=== PATIENT | male | born 1950 | race Caucasian/White ===

== ENCOUNTER 2017-05-12 12:55 | Emergency (ER) | payer MEDICARE, BC ==
[2017-05-12 15:48] VITALS: BP 117/67
--- NOTE | 2017-05-12 16:17 | UC ---
Respiratory Complaint HPI - HPI Summary HPI Summary: pt c/o sudden onset of cough, body aches, fever X 3 days. - History of Current Complaint Chief Complaint: UCGeneralIllness Stated Complaint: FLULIKE SYMPTOMS Time Seen by Provider: 05/12/17 16:02 Hx Obtained From: Patient Onset/Duration: Sudden Onset, Lasting Days, Still Present Timing: Constant Severity Initially: Mild Severity Currently: Mild Pain Intensity: 4 Character: Cough: Nonproductive Aggravating Factors: Recumbent Position Alleviating Factors: OTC Meds Associated Signs And Symptoms: Positive: Fever, Chills, Nasal Congestion - Risk Factors Pulmonary Embolism Risk Factors: Negative Cardiac Risk Factors: Hypertension Pseudomonas Risk Factors: Negative Tuberculosis Risk Factors: Negative - Allergies/Home Medications Allergies/Adverse Reactions: Allergies Allergy/AdvReac Type Severity Reaction Status Date / Time Penicillins Allergy Rash Verified 05/12/17 15:38 Home Medications: Home Medications Acetaminophen [Acetaminophen Extra Strength] 1,000 mg PO Q6H PRN 05/12/17 [ History Confirmed 05/12/17] Esomeprazole(NF) [Nexium(NF)] 20 mg PO BEDTIME 05/12/17 [History Confirmed 05/12] Metoprolol 1 tab PO DAILY 05/12/17 [History Confirmed 05/12/17] Pravastatin (NF) [Pravachol (NF)] 0.5 tab PO 1700 05/12/17 [History Confirmed ] PMH/Surg Hx/FS Hx/Imm Hx Previously Healthy: Yes Cardiovascular History: Hypertension GI/ History: Other - Barritts esophagus Other GI/ History: hepatitis - Surgical History Surgical History: Yes Surgery Procedure, Year, and Place: RIGHT SHOULDER - Family History Known Family History: Positive: Cardiac Disease - Social History Occupation: Retired Lives: With Family Alcohol Use: None Substance Use Type: None Smoking Status (MU): Former Smoker Have You Smoked in the Last Year: No When Did the Patient Quit Smoking/Using Tobacco: 45 YRS AGO - Immunization History Vaccination Up to Date: No Review of Systems Constitutional: Fever, Chills, Fatigue Skin: Negative Eyes: Negative ENT: Sinus Congestion Respiratory: Cough Cardiovascular: Negative Gastrointestinal: Negative Genitourinary: Negative Motor: Negative Neurovascular: Negative Musculoskeletal: Myalgia Neurological: Negative Psychological: Negative Is Patient Immunocompromised?: No All Other Systems Reviewed And Are Negative: Yes Physical Exam Triage Information Reviewed: Yes Appearance: Ill-Appearing Vital Signs: Initial Vital Signs Temp 98.1 F 05/12/17 15:42 Pulse 96 05/12/17 15:42 Resp 20 05/12/17 15:42 BP 117/67 05/12/17 15:42 Pulse Ox 98 05/12/17 15:42 Vital Signs Reviewed: Yes Eye Exam: Normal ENT: Positive: Nasal congestion Dental Exam: Normal Neck exam: Normal Respiratory Exam: Normal Cardiovascular Exam: Normal Musculoskeletal Exam: Normal Neurological Exam: Normal Psychological Exam: Normal Skin Exam: Normal UC Diagnostic Evaluation - Laboratory O2 Sat by Pulse Oximetry: 98 Diagnostic Studies Comment: rapid flu positive B Respiratory Course/Dx - Differential Dx/Diagnosis Differential Diagnosis/HQI/PQRI: Bronchitis, Influenza Provider Diagnoses: Influenza B. bronchitis Discharge - Discharge Plan Condition: Stable Disposition: HOME Prescriptions: Azithromycin TAB* [Zithromax TAB (Z-EV) 250 mg #6 tabs] 2 tab PO .TODAY, THEN 1 DAILY #1 ev Benzonatate CAP* [Tessalon 100 MG CAP*] 100 mg PO Q8H PRN #30 cap PRN Reason: Cough Oseltamivir CAP* [Tamiflu CAP*] 75 mg PO Q12H #10 cap Patient Education Materials: Influenza (ED), Acute Bronchitis (ED) Referrals: [facility] [Outside] No Primary Care Phys,NOPCP [Primary Care Provider] -
== END 2017-05-12 16:39 | disposition home or self-care (01) ==
LOC: UCCORT 12:55
DX: J10.1 Influenza due to other identified influenza virus with other respiratory manifestations (principal); J40 Bronchitis, not specified as acute or chronic
CPT/HCPCS: 87502; 99202; G0463

== ENCOUNTER 2017-05-22 11:18 | Emergency (ER) | payer MEDICARE, BC ==
[2017-05-22 12:18] VITALS: BP 131/71
--- NOTE | 2017-05-22 12:19 | UC ---
FLU HPI - HPI Summary HPI Summary: 66 y/o male presents to the urgent care for a re-check for his Influenza and bronchitis. Pt reports he here on 05/12/2017 and Dx w/ the flu. Flu like symptoms improve. However he has sinus pain, pressure w/ green nasal discharge, +PND, NEWMAN. He has been taken Motrin w/ mild relief. Pain is 4/10. Pt denies ear pain, dizziness, SOB, chest pain, abdominal pain, N/V/D - History of Current Complaint Stated Complaint: FLU RE-CHECK Time Seen by Provider: 05/22/17 12:17 Hx Obtained From: Patient Onset/Duration: Gradual Onset, Lasting Weeks - 10 days, Still Present Severity Currently: Moderate Severity Initially: Moderate Pain Intensity: 4 Pain Scale Used: 0-10 Numeric Associated Signs & Symptoms: Positive: Nasal Congestion, Headache - Risk Factors Influenza Risk Factors: Negative - Allergy/Home Medications Allergies/Adverse Reactions: Allergies Allergy/AdvReac Type Severity Reaction Status Date / Time Penicillins Allergy Rash Verified 05/12/17 15:38 PMH/Surg Hx/FS Hx/Imm Hx Previously Healthy: Yes Endocrine History: Dyslipidemia Cardiovascular History: Hypertension - Surgical History Surgical History: Yes Surgery Procedure, Year, and Place: RIGHT SHOULDER - Family History Known Family History: Positive: Cardiac Disease - Social History Occupation: Employed Full-time Lives: With Family Alcohol Use: None Substance Use Type: None Smoking Status (MU): Former Smoker Have You Smoked in the Last Year: No When Did the Patient Quit Smoking/Using Tobacco: 45 YRS AGO - Immunization History Vaccination Up to Date: No Review of Systems Constitutional: Negative Skin: Negative Eyes: Negative ENT: Nasal Discharge, Sinus Congestion, Sinus Pain/Tenderness, Other - +PND Respiratory: Negative Cardiovascular: Negative Gastrointestinal: Negative Genitourinary: Negative Motor: Negative Neurovascular: Negative Musculoskeletal: Negative Neurological: Headache Is Patient Immunocompromised?: No All Other Systems Reviewed And Are Negative: Yes Physical Exam Triage Information Reviewed: Yes - Additional Comments Vitals: reviewed General: Well developed, well-nourished male patient with NAD. Head and face: Normocephalic and atraumatic, Positive tenderness over the frontal and maxillary sinuses.. Eyes: PERRLA, EOMI x 2. Normal conjunctiva. No eye discharge. ENT: Ears and TM with normal limits. Nose: with yellowish discharge and erythematous mucosa. Pharynx with erythema, no exudate. Neck: Supple, no JVD, no carotid bruits and no lymphadenopathy. Lungs: clear, no rales, no rhonchi, no wheezes. CVS: RRR, S1 and S2 present no murmurs or gallops appreciated. Abdomen: soft nontender with positive bowel sounds. Extremities: no edema noted. Neuro: WNL. Skin: warm and dry Flu Course/Dx - Course Course Of Treatment: 66 y/o male presents to the urgent care for a re-check for his Influenza and bronchitis. Pt reports he here on 05/12/2017 and Dx w/ the flu. Flu like symptoms improve. However he has sinus pain, pressure w/ green nasal discharge, +PND, NEWMAN. He has been taken Motrin w/ mild relief. Pain is 4/10. Pt denies ear pain, dizziness, SOB, chest pain, abdominal pain, N/V/D. Hx obtained. Pt w/ sinusitis on examination. Pt with 10 days of symptoms getting worse. Pt PCN allergic . Pt Rx Z-hubert PO and flonase nasal spray. Ibuprofen PO for NEWMAN. Discharge instructions explained to Pt. Advised to Return to the clinic or PCP if symptoms do not improve.Pt understood and agreed with plan of care. - Differential Dx/Diagnosis Differential Diagnosis/HQI/PQRI: Bronchitis, Influenza, Pneumonia, Upper Respiratory Infection, Other - sinusitis, pharyngitis Provider Diagnoses: 1- Acute bacterial sinusitis Discharge - Discharge Plan Condition: Stable Disposition: HOME Prescriptions: Azithromyxin HUBERT (NF) [Z-Hubert (Zithromax) 250 mg tabs #6] 2 tab PO .TODAY, THEN 1 DAILY #6 tab Fluticasone NASAL SPRAY 50MCG* [Flonase NASAL SPRAY 50MCG*] 2 spray BOTH NARES DAILY #1 btl Ibuprofen TAB* [Motrin TAB* 600 MG] 600 mg PO Q6H PRN #30 tab PRN Reason: Headache Patient Education Materials: Sinusitis (ED) Referrals: Rose Mary LOCK,Trixie [Primary Care Provider] - 1 Week Additional Instructions: 1- Please increase fluid intake and rest. take full course of antibiotic to avoid resistance 2-Use Flonase as directed to help drain fluid. Also buy saline drops to clear sinuses 3-Take Ibuprofen PO q6-8hrs prn after meals to alleviates Headache 4-Return to the clinic or PCP if symptoms do not improve for further management and treatment
== END 2017-05-22 12:54 | disposition home or self-care (01) ==
LOC: UCCORT 11:18
DX: J01.90 Acute sinusitis, unspecified (principal); B96.89 Other specified bacterial agents as the cause of diseases classified elsewhere; Z88.0 Allergy status to penicillin; Z87.891 Personal history of nicotine dependence
CPT/HCPCS: 99211; G0463